=== PATIENT | female | born 1970 | race Caucasian/White ===

== ENCOUNTER 2021-07-12 09:05 | Emergency (ER) | payer BC ==
[~2021-07-12] VITALS: Ht 170.2 cm; Wt 68.0 kg
[2021-07-12] MEDS ORDERED: KETOROLAC 60MG/2ML VIAL IM ONE (09:30)
[2021-07-12] MEDS ORDERED: HYDROCODONE/ACETAMINOPHEN 10/325MG TABLET PO ONE (09:30)
[2021-07-12] MEDS ORDERED: MIDAZOLAM HCL 2 MG/2 ML VIAL IM NR (10:38)
[2021-07-12] MEDS ORDERED: LIDOCAINE HCL 2%/EPINEPHRINE 1:100,000 20 ML VIAL INFIL NR (10:45)
[2021-07-12] MEDS ORDERED: BUPIVACAINE HCL 0.25% (2.5MG/ML) 50ML IR ONE (12:00)
[2021-07-12] MEDS ORDERED: BUPIVACAINE HCL/PF 0.25% (2.5MG/ML) 10ML INFIL NR (12:45)
[2021-07-12] MEDS ORDERED: HYDROCODONE/ACETAMINOPHEN 5/325MG TABLET PO ONE (12:45)
[2021-07-12] MEDS ORDERED: FENTANYL CITRATE/PF 50MCG/ML 2ML VIAL IM ONE (13:00)
[2021-07-12] MEDS ORDERED: IBUP-2030 MT (13:35)
[2021-07-12] MEDS ORDERED: ACET650T37 MT (13:35)
[2021-07-12 14:07] VITALS: BP 136/82
== END 2021-07-12 14:08 | disposition home or self-care (01) ==
LOC: ER 09:05
DX: S52.611A Displaced fracture of right ulna styloid process, initial encounter for closed fracture (principal); W18.39XA Other fall on same level, initial encounter; Y93.89 Activity, other specified; Y92.89 Other specified places as the place of occurrence of the external cause; Y99.8 Other external cause status
CPT/HCPCS: 73110; 96372; 99152; 99285; J1885; J2250; J3010; J3490; Z7610; A4565